=== PATIENT | male | born 1945 | race Hispanic/Latino ===

== ENCOUNTER 2022-05-31 13:10 | Inpatient (IN) | payer OTHER ==
[2022-05-31 14:53] LABS: Absolute Lymphocytes (CBC) 1.7 K/uL (0.7-4.9); Hematocrit 42.1 % (39.6-49.0); Lymphocytes % 19.4 % (15.3-44.8); MCV 88.3 fL (80-100); MPV 8.5 fL (7.6-11.3); RBC Red Blood Cell Count 4.76 M/uL (4.33-5.43)
[2022-05-31 14:54] LABS: Protime INR 1.18
[2022-05-31 14:54] LABS: SARS-CoV-2 Antigen Rapid Res Positive (Negative)
[2022-05-31] MEDS ORDERED: ASPIRIN 81 MG CHEWABLE TABLET ONE (14:56)
--- NOTE | 2022-05-31 15:04 | RAD REPORT ---
EXAM DESCRIPTION: - CP - 05/31/2022 2:43 pm CLINICAL HISTORY: DIZZINESS COMPARISON: No comparisons TECHNIQUE: Real-time sonographic evaluation of both carotid systems was performed. Doppler interroga tion was performed with waveform tracing bilaterally. FINDINGS: Normal high resistance waveforms are noted in both external carotid arteries. The common c arotid arteries and internal carotid arteries show normal low resistance waveforms. No significant plaque formation is seen. Peak systolic and end diastolic velocity values and the ICA/ CCA ratios are in the non-hemodynamically significant range. Antegrade flow seen in both vertebral arteries. IMPRESSION: No significant atherosclerotic changes noted. No evidence of a hemodynamically significant stenosis.
[2022-05-31 15:12] LABS: Albumin 3.4 g/dL (3.4-5.0); Bilirubin Direct 0.2 mg/dL (0-0.2); Bilirubin Total 0.8 mg/dL (0.2-1.0); Magnesium 1.6 mg/dL (1.8-2.4); Potassium 4.8 mmol/L (3.5-5.1); Protein, Total 7.8 g/dL (6.4-8.2); Thyroid Stimulating Hormone 0.171 uIU/mL (0.360-3.740); Troponin High Sensitivity 32.1 pg/mL (<58.9)
--- NOTE | 2022-05-31 15:17 | RAD REPORT ---
EXAM DESCRIPTION: RAD - Chest Single View - 05/31/2022 3:10 pm CLINICAL HISTORY: CHEST PAIN COMPARISON: ABDOMEN 1 VIEW KUB dated 07/19/2015; ABDOMEN 1 VIEW KUB dated 04/14/2013; CHEST SINGLE EW dated 02/11/2013; CHEST PA AND LAT 2 VIEW dated 06/15/2012 FINDINGS: Lines: None. Lungs: No evidence of edema or pneumonia. Pleural: No significant pleural effusions or pneumothorax. Cardiac: The heart size is within normal limits. Mediastinum: Within normal limits. Bones: No acute fractures. Other: None IMPRESSION: No acute cardiopulmonary disease.
[2022-05-31] MEDS ORDERED: MAGNESIUM SULFATE 1 gm IVPB 1 GM/100 ML BAG IV ONE (15:52)
[2022-05-31] MEDS ORDERED: NA CHLORIDE 0.9% 500 ML ONE ×2 (15:52→17:08)
[2022-05-31] MEDS ORDERED: BEBTELOVIMAB 175 MG/2 ML VIAL IV ONE (15:53)
--- NOTE | 2022-05-31 16:25 | EDPHYS ---
Physician Documentation [facility] Name: Tramaine Garrido Age: 76 yrs Sex: Male : 1945 Arrival Date: 05/31/2022 Time: 13:12 Bed 15 Private MD: Sylvain Young C ED Physician Joseph Jesus HPI: 05/31 14:23 This 76 yrs old Male presents to ER via Ambulatory with complaints of snw Dizziness, Shortness Of Breath. 14:23 The patient presents with dizziness. Onset: The symptoms/episode began/occurred snw gradually, 2.5 week(s) ago, and became persistent. Context: occurred at home, occurred while the patient was walking. Modifying factors: The symptoms are alleviated by nothing, the symptoms are aggravated by pt states s/s worse since increasing Nifedipine . Severity of symptoms: At their worst the symptoms were moderate. Patient's baseline: Neuro: alert and fully oriented, Motor: no deficits, Ambulation: walks without assistance. It is unknown whether or not the patient has had similar symptoms in the past. The patient has been recently seen by a physician: the patient's primary care provider, Dr. Young. Historical: - Allergies: 13:23 No Known Allergies; kr3 - PMHx: 13:23 Kidney stone; Hypertensive disorder; kr3 - PSHx: 13:23 None; kr3 - Immunization history:: Client reports receiving the 2nd dose of the Covid vaccine. - Social history:: Smoking status: Patient denies any tobacco usage or history of. ROS: 14:23 Eyes: Negative for injury, pain, redness, and discharge, ENT: Negative for injury, snw pain, and discharge, Neck: Negative for injury, pain, and swelling. 14:23 Abdomen/GI: Negative for abdominal pain, nausea, vomiting, diarrhea, and constipation, Back: Negative for injury and pain, : Negative for injury, bleeding, discharge, and swelling, MS/Extremity: Negative for injury and deformity, Skin: Negative for injury, rash, and discoloration. 14:23 Constitutional: Positive for fatigue, malaise. 14:23 Cardiovascular: Positive for paroxysmal nocturnal dyspnea. 14:23 Respiratory: Positive for dyspnea on exertion. 14:23 Neuro: Positive for dizziness. Exam: 14:16 Constitutional: This is a well developed, well nourished patient who is awake, alert, snw and in no acute distress. Head/Face: Normocephalic, atraumatic. Eyes: Pupils equal round and reactive to light, extra-ocular motions intact. Lids and lashes normal. Conjunctiva and sclera are non-icteric and not injected. Cornea within normal limits. Periorbital areas with no swelling, redness, or edema. ENT: Nares patent. No nasal discharge, no septal abnormalities noted. Tympanic membranes are normal and external auditory canals are clear. Oropharynx with no redness, swelling, or masses, exudates, or evidence of obstruction, uvula midline. Mucous membranes moist. Neck: Trachea midline, no thyromegaly or masses palpated, and no cervical lymphadenopathy. Supple, full range of motion without nuchal rigidity, or vertebral point tenderness. No Meningismus. Chest/axilla: Normal chest wall appearance and motion. Nontender with no deformity. No lesions are appreciated. 14:16 Respiratory: Lungs have equal breath sounds bilaterally, clear to auscultation and percussion. No rales, rhonchi or wheezes noted. No increased work of breathing, no retractions or nasal flaring. Abdomen/GI: Soft, non-tender, with normal bowel sounds. No distension or tympany. No guarding or rebound. No evidence of tenderness throughout. Back: No spinal tenderness. No costovertebral tenderness. Full range of motion. Skin: Warm, dry with normal turgor. Normal color with no rashes, no lesions, and no evidence of cellulitis. MS/ Extremity: Pulses equal, no cyanosis. Neurovascular intact. Full, normal range of motion. 14:16 Cardiovascular: Rate: tachycardic, Rhythm: irregularly irregular, Pulses: no pulse deficits are appreciated, Heart sounds: normal, Edema: pedal edema. 14:16 Neuro: Orientation: is normal, Mentation: is normal, Memory: is normal, pt lives alone. 15:00 Special observations: no evidence of discomfort, the patient smiles. snw Vital Signs: 13:24 BP 136 / 117; Pulse 110; Resp 20; Temp 97.4; Pulse Ox 94% on R/A; Weight 146.06 kg; kr3 Height 5 ft. 8 in. (172.72 cm); Pain 0/10; 14:00 BP 97 / 60; Pulse 127; Resp 22 S; Pulse Ox 93% on R/A; jg9 14:15 BP 90 / 61; Pulse 97 LA; Resp 16 S; Pulse Ox 96% on R/A; jg9 14:30 BP 70 / 48; Pulse 104; Resp 12 S; Pulse Ox 97% ; jg9 15:25 BP 80 / 55; Pulse 109; Resp 16; Pulse Ox 99% on R/A; ss 16:00 BP 99 / 88; Pulse 95; Resp 13 S; Pulse Ox 97% on R/A; jg9 16:22 BP 84 / 68 (man/); jg9 16:30 BP 80 / 55; Pulse 104; Resp 22 S; Pulse Ox 98% on R/A; jg9 16:45 BP 82 / 51; Pulse 91; Resp 14 S; Pulse Ox 98% on R/A; jg9 17:45 BP 112 / 62; Pulse 89; Resp 19; Pulse Ox 97% on R/A; jg9 19:00 BP 96 / 72; Pulse 85; Resp 17; Pulse Ox 97% on R/A; jb4 20:00 BP 110 / 72; Pulse 87; Resp 15; Pulse Ox 96% on R/A; jb4 21:00 BP 123 / 56; Pulse 108; Resp 19; Pulse Ox 97% on R/A; jb4 22:15 BP 129 / 77; Pulse 97; Resp 13; Pulse Ox 97% on R/A; jb4 13:24 Body Mass Index 48.96 (146.06 kg, 172.72 cm) kr3 [place] Coma Score: 16:00 Eye Response: spontaneous(4). Verbal Response: oriented(5). Motor Response: obeys snw commands(6). Total: 15. 16:00 pt in no acute distress. Ox3 snw MDM: 13:50 Patient medically screened. snw 14:16 Data reviewed: vital signs, nurses notes. Data interpreted: Pulse oximetry: on room air snw is 94 %. Interpretation: acceptable. Counseling: I had a detailed discussion with the patient and/or guardian regarding: the historical points, exam findings, and any diagnostic results supporting the discharge/admit diagnosis, the presence of at least one elevated blood pressure reading (>120/80) during this emergency department visit, the need for further work-up and treatment in the hospital, Pt notified that he meets admission criteria based on s/s CHF or a fib related issues. Pt voices understanding. Will await labs to call PCP for admit. Pt will need echo. . ED course: Medications obtained from [facility] Nifedipine 30mg increased to 60mg three weeks ago, Losartan 100mg po daily, Doxazosin 2mg daily, Levothyroxine 50mcg daily, atorvastatin 20mg po q hs, finasteride 5mg daily. 15:15 ED course: Pt test for Covid positive. This is considered source of infection. A = snw viral illness.. 15:30 ED course: Pt has a viral source of sepsis - Sars Covid 19+, +hypotension, tachycardia, snw new onset a. fib.. 15:30 ED course: Pt meets criteria for severe sepsis with shock, A = covid, B= two systolic snw blood pressures below 90. C = new onset a. fib. As pt has s/s CHF, will give 500ml bolus. Pt A\T\O x 3.. ED course: Pt perfusing well, no need for pressors at this time, Dr. Giron consulted, suggests one dose of Digoxin 0.125mg SIVP x 1.. 16:02 Physician consultation: Sylvain Young MD was called at 16:02, was contacted at 16:02, snw regarding admission, would like consultation with Dr. Rao, Wants manual bilateral blood pressures. 18:05 Physician consultation: Grady Giron MD was called at 17:05, was contacted at 18:05, snw regarding consult, would like medications started, digoxin 0.125mg SIVP x 1 dose. 20:06 ED course: septic shock re-evaluation complete. Pt with SBP greater than 90. HR less snw than 100. Mentation normal. No s/s of hypotension . 05/31 14:03 Order name: Basic Metabolic Panel; Complete Time: 15:15 snw 05/31 14:03 Order name: CBC with Diff; Complete Time: 15:15 snw 05/31 14:03 Order name: D-Dimer; Complete Time: 15:15 snw 05/31 14:03 Order name: LFT's; Complete Time: 15:15 snw 05/31 14:03 Order name: Magnesium; Complete Time: 15:15 snw 05/31 14:03 Order name: NT PRO-BNP; Complete Time: 15:15 05/31 14:03 Order name: PT-INR; Complete Time: 15:15 05/31 14:03 Order name: Troponin HS; Complete Time: 15:15 05/31 14:03 Order name: XRAY Chest (1 view); Complete Time: 15:18 05/31 14:03 Order name: SARS RAPID; Complete Time: 15:15 05/31 14:03 Order name: US Carotid Artery Bilateral; Complete Time: 15:15 05/31 14:03 Order name: TSH; Complete Time: 15:15 05/31 14:03 Order name: EKG; Complete Time: 14:04 05/31 14:03 Order name: Cardiac monitoring; Complete Time: 14:09 05/31 14:03 Order name: EKG - Nurse/Tech; Complete Time: 14:15 05/31 14:03 Order name: IV Saline Lock; Complete Time: 14:22 05/31 14:03 Order name: Labs collected and sent; Complete Time: 14:22 05/31 14:03 Order name: O2 Per Protocol; Complete Time: 16:13 05/31 14:03 Order name: O2 Sat Monitoring; Complete Time: 14:09 snw EC:16 Rate is 122 beats/min. Rhythm is irregularly irregular. QRS [place] is Normal. ST Segment snw is depressed in leads V4, V5, V6. Clinical impression: Atrial Fibrillation. Administered Medications: 14:00 Drug: Lovenox (enoxaparin) 1 mg/kg Route: Sub-Q; Site: right lower abdomen; jg9 16:54 Follow up: Response: No adverse reaction jg9 15:03 Drug: Aspirin Chewable Tablet 324 mg Route: PO; jg9 15:58 Follow up: Response: No adverse reaction jg9 15:58 Drug: NS 0.9% 500 ml Route: IV; Rate: bolus; Site: right antecubital; jg9 17:15 Follow up: IV Status: Completed infusion; IV Intake: 500ml ss 16:10 Drug: Magnesium Sulfate 1 grams Route: IVPB; Infused Over: 1 hrs; Site: right jg9 antecubital; 17:15 Follow up: IV Status: Completed infusion; IV Intake: 100ml ss 16:22 Drug: Bebtelovimab 175 mg Route: IV; Rate: calculated rate; Site: right antecubital; jg9 16:54 Follow up: Response: (VIS) Vaccine information sheet provided today. Questions and/or jg9 concerns addressed. VIS edition date: Apr 26, 2021.; No adverse reaction; IV Status: Completed infusion; IV Intake: 2ml 17:20 Drug: NS 0.9% 500 ml Route: IV; Rate: bolus; Site: right antecubital; ss 17:53 Follow up: IV Status: Completed infusion; IV Intake: 500ml jg9 19:17 Drug: Digoxin 0.125 mg Route: IVP; Site: right antecubital; jg9 Disposition Summary: 05/31/22 16:24 Hospitalization Ordered Hospitalization Status: Inpatient Admission snw Provider: Sylvain Young snw Condition: Stable snw Problem: new snw Symptoms: are unchanged snw Bed/Room Type: Standard snw Location: Telemetry/MedSurg (Inpatient)(05/31/22 21:58) mw2 Room Assignment: 418(05/31/22 22:00) mw2 Diagnosis - SARS-associated coronavirus as the cause of diseases classified elsewhere snw - Paroxysmal atrial fibrillation snw - Acute kidney injury snw Forms: - Medication Reconciliation Form snw - SBAR form snw Signatures: Dispatcher [employer] Shaylee Roman RN RN dw Waters, Shelly, FNP-C LEGAL WRITING PROFESSOR-Alexandra Acuna RN RN ss [place], MyKena 2 Opal Jules RN RN jg9 Candi Cid RN RN kr3 Corrections: (The following items were deleted from the chart) 20:00 14:16 Counseling: I had a detailed discussion with the patient and/or guardian snw regarding: the historical points, exam findings, and any diagnostic results supporting the discharge/admit diagnosis, the presence of at least one elevated blood pressure reading (>120/80) during this emergency department visit, the need for further work-up and treatment in the hospital, snw 20:00 14:16 Special discussion: Based on the patient's history, exam, and Dx evaluation, snw there is no indication for emergent intervention or inpatient Tx. It is understood by the patient/guardian that if the Sx's persist or worsen they need to return immediately for re-evaluation. I have referred the patient to see his PCP for further evaluation of high blood pressure. count includes the [facility] 20:06 15:30 Bebtelovimab 175 mg IV at calculated rate once; as a single dose ordered. [facility] 20:06 18:05 Physician consultation: Grady Giron MD was called at 17:05, was contacted at count includes the [facility] 18:05, regarding consult, would like medications started, digoxin 0.125mg SIVP x 1 dose, count includes the [facility] 20:17 16:24 Intensive Care Unit sn dw 20:17 16:24 count includes the [facility] dw :58 20:17 [facility] ER HOLD dw mw2 21:58 20:17 ERHOLD- dw mw2 22:00 21:58 mw2 mw2
--- NOTE | 2022-05-31 16:25 | ER ---
Nurse's Notes [facility] Name: Tramaine Garrido Age: 76 yrs Sex: Male : 1945 Arrival Date: 05/31/2022 Time: 13:12 Bed 15 Private MD: Sylvain Young C Diagnosis: SARS-associated coronavirus as the cause of diseases classified elsewhere;Paroxysmal atrial fibrillation;Acute kidney injury Presentation: 05/31 13:24 Chief complaint: Patient states: SOB and dizziness for [address] Young changed kr3 his meds 2.5 weeks ago. Coronavirus screen: Vaccine status: Patient reports receiving the 2nd dose of the covid vaccine. Client denies travel out of the [place] in the last 14 days. difficulty breathing, fatigue, shortness of breath, Client presents with at least one sign or symptom that may indicate coronavirus-19. Standard/surgical mask placed on the client. Ebola Screen: Patient denies travel to an Ebola-affected area in the 21 days before illness onset. Initial Sepsis Screen: Does the patient meet any 2 criteria? HR > 90 bpm. No. Patient's initial sepsis screen is negative. Does the patient have a suspected source of infection? Yes: Other: dyspnea. Risk Assessment: Do you want to hurt yourself or someone else? Patient reports no desire to harm self or others. Onset of symptoms was May 18, 2022. 13:24 Method Of Arrival: Ambulatory kr3 13:24 Acuity: MARKEL 3 kr3 15:27 Acuity: MARKEL 2 ss Triage Assessment: 13:26 General: Appears uncomfortable, ill, Behavior is cooperative, appropriate for age. kr3 Pain: Denies pain. Neuro: Reports dizziness, weakness. Respiratory: Reports shortness of breath on exertion Onset: The symptoms/episode began/occurred 2 weeks, the patient has moderate shortness of breath. Historical: - Allergies: 13:23 No Known Allergies; kr3 - PMHx: 13:23 Kidney stone; Hypertensive disorder; kr3 - PSHx: 13:23 None; kr3 - Immunization history:: Client reports receiving the 2nd dose of the Covid vaccine. - Social history:: Smoking status: Patient denies any tobacco usage or history of. Screenin:41 Abuse screen: Denies threats or abuse. Denies injuries from another. Nutritional jg9 screening: No deficits noted. Tuberculosis screening: No symptoms or risk factors identified. Fall Risk None identified. Assessment: 14:00 Reassessment: Patient appears in no apparent distress at this time. No changes from jg9 previously documented assessment. Patient and/or family updated on plan of care and expected duration. Pain level reassessed. Patient is alert, oriented x 3, equal unlabored respirations, skin warm/dry/pink. 15:00 Reassessment: Patient and/or family updated on plan of care and expected duration. Pain jg9 level reassessed. Patient is alert, oriented x 3, equal unlabored respirations, skin warm/dry/pink. Cardiovascular: Rhythm is atrial fibrillation. Respiratory: Airway is patent Respiratory effort is even, unlabored, Breath sounds are clear bilaterally. 16:22 Reassessment: Manual BP done-Gomez notified. jg9 19:00 Reassessment: Patient appears in no apparent distress at this time. Patient and/or jb4 family updated on plan of care and expected duration. Pain level reassessed. Patient is alert, oriented x 3, equal unlabored respirations, skin warm/dry/pink. 20:00 Reassessment: Patient appears in no apparent distress at this time. Patient and/or jb4 family updated on plan of care and expected duration. Pain level reassessed. Patient is alert, oriented x 3, equal unlabored respirations, skin warm/dry/pink. 21:00 Reassessment: Patient appears in no apparent distress at this time. Patient and/or jb4 family updated on plan of care and expected duration. Pain level reassessed. Patient is alert, oriented x 3, equal unlabored respirations, skin warm/dry/pink. 22:00 Reassessment: Patient appears in no apparent distress at this time. Patient and/or jb4 family updated on plan of care and expected duration. Pain level reassessed. Patient is alert, oriented x 3, equal unlabored respirations, skin warm/dry/pink. Patient states feeling better. Vital Signs: 13:24 BP 136 / 117; Pulse 110; Resp 20; Temp 97.4; Pulse Ox 94% on R/A; Weight 146.06 kg; kr3 Height 5 ft. 8 in. (172.72 cm); Pain 0/10; 14:00 BP 97 / 60; Pulse 127; Resp 22 S; Pulse Ox 93% on R/A; jg9 14:15 BP 90 / 61; Pulse 97 LA; Resp 16 S; Pulse Ox 96% on R/A; jg9 14:30 BP 70 / 48; Pulse 104; Resp 12 S; Pulse Ox 97% ; jg9 15:25 BP 80 / 55; Pulse 109; Resp 16; Pulse Ox 99% on R/A; ss 16:00 BP 99 / 88; Pulse 95; Resp 13 S; Pulse Ox 97% on R/A; jg9 16:22 BP 84 / 68 (man/); jg9 16:30 BP 80 / 55; Pulse 104; Resp 22 S; Pulse Ox 98% on R/A; jg9 16:45 BP 82 / 51; Pulse 91; Resp 14 S; Pulse Ox 98% on R/A; jg9 17:45 BP 112 / 62; Pulse 89; Resp 19; Pulse Ox 97% on R/A; jg9 19:00 BP 96 / 72; Pulse 85; Resp 17; Pulse Ox 97% on R/A; jb4 20:00 BP 110 / 72; Pulse 87; Resp 15; Pulse Ox 96% on R/A; jb4 21:00 BP 123 / 56; Pulse 108; Resp 19; Pulse Ox 97% on R/A; jb4 22:15 BP 129 / 77; Pulse 97; Resp 13; Pulse Ox 97% on R/A; jb4 13:24 Body Mass Index 48.96 (146.06 kg, 172.72 cm) kr3 [place] Coma Score: 16:00 Eye Response: spontaneous(4). Verbal Response: oriented(5). Motor Response: obeys snw commands(6). Total: 15. 16:00 pt in no acute distress. Ox3 snw ED Course: 13:12 Patient arrived in ED. rg4 13:12 Sylvain Young MD is Private Physician. rg4 13:26 Triage completed. kr3 13:26 Arm band placed on Patient placed in an exam room, on a stretcher. kr3 13:49 Rita [facility]-C [facility] snw 13:49 Joseph Jesus MD is Attending Physician. snw 14:00 Patient has correct armband on for positive identification. Bed in low position. Call jg9 light in reach. Side rails up X 1. 14:04 Opal Jules, RN is Primary Nurse. jg9 14:10 Inserted saline lock: 22 gauge in right antecubital area, using aseptic technique. jg9 Blood collected. 14:22 EKG done, by ED staff, reviewed by Rita LEON. 3 14:44 US Carotid Artery Bilateral In Process Unspecified. EDMS 15:11 XRAY Chest (1 view) In Process Unspecified. EDMS 16:23 Sylvain Young MD is Hospitalizing Provider. snw 19:08 Primary Nurse role handed off by Opal Jules, ROMAIN mw2 22:34 Radha Vasquez, ROMAIN is Primary Nurse. hb 22:50 No provider procedures requiring assistance completed. Patient admitted, IV remains in jb4 place. Administered Medications: 14:00 Drug: Lovenox (enoxaparin) 1 mg/kg Route: Sub-Q; Site: right lower abdomen; jg9 16:54 Follow up: Response: No adverse reaction jg9 15:03 Drug: Aspirin Chewable Tablet 324 mg Route: PO; jg9 15:58 Follow up: Response: No adverse reaction jg9 15:58 Drug: NS 0.9% 500 ml Route: IV; Rate: bolus; Site: right antecubital; jg9 17:15 Follow up: IV Status: Completed infusion; IV Intake: 500ml ss 16:10 Drug: Magnesium Sulfate 1 grams Route: IVPB; Infused Over: 1 hrs; Site: right jg9 antecubital; 17:15 Follow up: IV Status: Completed infusion; IV Intake: 100ml ss 16:22 Drug: Bebtelovimab 175 mg Route: IV; Rate: calculated rate; Site: right antecubital; jg9 16:54 Follow up: Response: (VIS) Vaccine information sheet provided today. Questions and/or jg9 concerns addressed. VIS edition date: Apr 26, 2021.; No adverse reaction; IV Status: Completed infusion; IV Intake: 2ml 17:20 Drug: NS 0.9% 500 ml Route: IV; Rate: bolus; Site: right antecubital; ss 17:53 Follow up: IV Status: Completed infusion; IV Intake: 500ml jg9 19:17 Drug: Digoxin 0.125 mg Route: IVP; Site: right antecubital; jg9 Medication: 22:50 VIS not applicable for this client. jb4 Intake: 16:54 IV: 2ml; Total: 2ml. jg9 17:15 IV: 500ml; Total: 502ml. ss 17:15 IV: 100ml; Total: 602ml. ss 17:53 IV: 500ml; Total: 1102ml. jg9 Outcome: 16:24 Decision to Hospitalize by Provider. snw 22:50 Admitted to Tele accompanied by [facility], room 418, with chart. jb4 22:50 Condition: stable 22:50 Discharge instructions given to patient, Instructed on the need for admit, Demonstrated understanding of instructions. 22:50 Patient left the ED. jb4 Signatures: Dispatcher [employer] EDMS Rita Gomez, TOOL DRESSER-C TOOL DRESSER-Csnw Alexandra Moy RN RN Radha Berry, RN Geetha Phillips 4 Bart Amor RN RN jb4 Jolly Guadalupe 3 Ike Mike 2 Opal Jules RN RN jg9 Candi Cid, RN RN kr3 Corrections: (The following items were deleted from the chart) 15:36 14:15 BP 90 / 61; Pulse 97bpm; Left Arm; jg9
[2022-05-31] MEDS ORDERED: DIGOXIN 0.25 MG/ML AMP ONE (18:40)
[2022-05-31] MEDS ORDERED: FAMOTIDINE 20 MG/2 ML VIAL IV SCH (22:40)
[2022-05-31] MEDS ORDERED: ACETAMINOPHEN 500 MG TAB PO PRN (22:40)
[2022-05-31] MEDS: NA CHLORIDE 0.9% 1,000 ML IV SCH (23:12)
[2022-05-31 23:49] LABS: CKMB Creatine Kinase MB 1.6 ng/mL (1.0-3.6)
[2022-06-01 06:56] LABS: Absolute Lymphocytes (CBC) 1.5 K/uL (0.7-4.9); Hematocrit 38.4 % (39.6-49.0); Lymphocytes % 24.2 % (15.3-44.8); MCV 88.7 fL (80-100); MPV 8.1 fL (7.6-11.3); RBC Red Blood Cell Count 4.33 M/uL (4.33-5.43)
[2022-06-01 07:29] LABS: Magnesium 1.9 mg/dL (1.8-2.4); Potassium 4.7 mmol/L (3.5-5.1)
[2022-06-01 07:31] LABS: CKMB Creatine Kinase MB 1.7 ng/mL (1.0-3.6)
[2022-06-01] MEDS: FINASTERIDE 5 MG TAB PO SCH (08:27)
[2022-06-01] MEDS: METOPROLOL TAR 25 MG TAB PO SCH ×2 (08:27→21:13)
[2022-06-01] MEDS: NA CHLORIDE 0.9% 1,000 ML IV SCH (13:06)
--- NOTE | 2022-06-01 17:28 | CON ---
Date of Consultation: 06/01/2022 Reason For Consultation: Atrial fibrillation with rapid ventricle response. History Of Present Illness: This is a 76-year-old male with past medical history of hypertension, dy slipidemia, hypothyroidism, on LT4, presented to the emergency room feeling dizzy and short of breath . The patient was tested positive for COVID and initially was in atrial fibrillation with rapid vent ricular response. Given 1 dose of digoxin. Heart rate went down and continues to be in AFib, but wi th rate being controlled. The patient's blood pressure was borderline low and has improved nicely an d currently his AFib is rate controlled and the patient is feeling well. Denies having any chest shanika n or shortness of breath. Past Medical History: As outlined above in the HPI. Medications: Refer to reconciliation sheet for detailed list. Allergies: NO KNOWN DRUG ALLERGIES. Family History: No premature coronary artery disease or cancer. Social History: He does not smoke or drink. Does not use any drugs. Review of Systems: All systems reviewed and they were negative except for what mentioned in the HPI. Physical Examination: Vital Signs: Temperature is 97.0, pulse 80, breathing at 18, blood pressure is 107/70, saturating 97 % on room air. General: Pleasant middle-aged male, in no apparent distress. Head and Neck: Pupils are equal, reactive to light. Intact eye movements. No JVD. No cervical lym phadenopathy. Neck is supple. Thyroid is not enlarged. Lungs: Clear to auscultation bilaterally. No rhonchi, wheezing, or crackles. No accessory muscle u se. Heart: Irregularly irregular. No extra sounds. Abdomen: Soft, nontender. Bowel sounds positive. No organomegaly. No masses or hernia. No rigidi ty or rebound. Extremities: No clubbing or cyanosis. Intact pulses. Skin: No rash. Neurologic: Alert, awake. No acute focal deficits appreciated. Lymph Nodes: No cervical or axillary lymphadenopathy. Investigations: BUN is 23. Creatinine is 2.03, down from 2.7. Troponins are negative. Assessment And Recommendations: 1.Atrial fibrillation with rapid ventricular response. Probably the atrial fibrillation episode is due to the hyperactive thyroid condition. Recommend to cut down on the thyroid replacement therapy a nd agree with metoprolol. Rate now is controlled and the patient is hemodynamically stable. He will need anticoagulation as well. Eliquis is a good agent; however, a careful dose adjustment is to be considered due to the kidney dysfunction. Now, the kidney dysfunction can be an acute and the patien t's creatinine clearance is improving. We will reassess tomorrow. Please obtain echocardiogram. 2.Acute renal failure probably due to severe dehydration, improving with IV fluids. 3.Positive COVID. No significant inspiratory symptoms present. SR/MODL Voice ID: [id number] Report ID: [id number]
[2022-06-01] MEDS ORDERED: ATORVASTATIN 20 MG TAB PO SCH (21:00)
[2022-06-01] MEDS ORDERED: FAMOTIDINE 20 MG TAB PO SCH (21:00)
[2022-06-01] MEDS: APIXABAN 5 MG TABLET PO SCH (21:14)
[2022-06-02 00:01] VITALS: BMI 48.9
[2022-06-02] MEDS: NA CHLORIDE 0.9% 1,000 ML IV SCH ×2 (01:05→03:16)
[2022-06-02 04:23] LABS: Hematocrit 38.2 % (39.6-49.0); Lymphocytes % 26.4 % (15.3-44.8); MCV 88.5 fL (80-100); MPV 8.3 fL (7.6-11.3); RBC Red Blood Cell Count 4.31 M/uL (4.33-5.43)
[2022-06-02 04:50] LABS: Magnesium 1.8 mg/dL (1.8-2.4); Potassium 4.4 mmol/L (3.5-5.1)
[2022-06-02] MEDS ORDERED: LEVOTHYROXINE SOD 0.1 MG TAB PO SCH (06:30)
[2022-06-02] MEDS ORDERED: MAGNESIUM SULFATE 1 gm IVPB 1 GM/100 ML BAG IV ONE (07:00)
[2022-06-02] MEDS: METOPROLOL TAR 25 MG TAB PO SCH (08:28)
[2022-06-02] MEDS: APIXABAN 5 MG TABLET PO SCH (08:28)
[2022-06-02] MEDS: FINASTERIDE 5 MG TAB PO SCH (08:28)
[2022-06-02 08:35] VITALS: O2SAT 95
--- NOTE | 2022-06-02 11:46 | HP ---
Date of Admission: 05/31/2022 Chief Complaint: Dizziness and shortness of breath. History Of Present Illness: This is a 76-year-old male patient, who came into emergency room with ac [place] onset of feeling dizzy and short of breath when he got up to go take a shower. He also felt like heart racing feeling at that time. He came into emergency room. After he was evaluated in the ER, he was admitted to the hospital. The patient had atrial fibrillation with rapid ventricular rate. Vilma barrera was also tested positive for COVID in emergency room. His initial blood pressure was low in emerge ncy room and he did receive IV fluid 500 cc bolus 2 times in the emergency room and that actually has helped to improve his low blood pressure problem. For his COVID, he did receive monoclonal antibody treatment in the emergency room. Our original plan was to admit him to ICU, but once his blood pres sure improved and stabilized, we decided to admit him to regular medical floor. When I saw him this morning, he was lying in bed, feeling much better, denies any other complaints. He denies any cough, congestion. No expectoration. Allergies: NO KNOWN ALLERGIES. Medications: Aspirin 81 mg daily, atorvastatin 20 mg daily in the evening, doxazosin 2 mg at bedtime , finasteride 5 mg daily, levothyroxine 200 mcg daily and 50 mcg daily, losartan 100 mg daily, nifedi pine 30 mg 2 times a day. 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 Cardiovascular: As mentioned above. Respiratory: As mentioned above. All other systems reviewed and negative. Past Medical History: Significant for hypothyroidism, type 2 diabetes mellitus, hypertension, mixed hyperlipidemia, benign prostatic hypertrophy, high PSA, and chronic kidney disease stage 3B. Past Surgical History: Negative. Family History: Father, coronary artery disease. Mother , details unknown. Social History: Negative for smoking or alcohol use. Physical Examination: Vital Signs: Temperature 97.4, pulse 89, respiratory rate 13, blood pressure 117/72, oxygen saturati on 97%. Height 5 feet 8 inches, weight 322 pounds. General: Awake, alert, oriented, not in distress. HEENT: Head atraumatic, normocephalic. Conjunctivae nonerythematous. Sclerae white. Mouth, no thr ush or edema noted. Ears/Nose, no mass, lesion, discharge noted. Neck: Supple. No JVD, lymph nodes, bruit, thyromegaly noted. Lungs: Bilateral good equal air entry. Clear to auscultation. No rhonchi. No rales. Heart: Normal heart sounds, no murmur or gallop. Abdomen: Soft, bowel sounds normal. No guarding, rigidity, tenderness, mass, hepatosplenomegaly, dis tention, or bruit noted. Extremities: No leg edema. No calf tenderness. Skin: No rash, ulcer, cellulitis. Lymphatics: No lymph node enlargement in neck, supraclavicular, infraclavicular region. Neuro: No focal neurological deficit. Chest: Unremarkable. External Genitalia: Deferred. Rectal: Deferred. Laboratory Data: Yesterday; white count 8.6, hemoglobin 14.6, platelets 237. This morning; white co unt 6.3, hemoglobin 13.5, platelets 177. Yesterday; sodium 142, potassium 4.8, chloride 111, bicarb 23, BUN 21, creatinine 2.79, glucose 133. Liver function tests unremarkable. Magnesium low at 1.6. Troponin 32.1. ProBNP 2337. TSH 0.171. This morning; magnesium 1.9, sodium 143, potassium 4.7, ch loride 114, bicarb 25, BUN 23, creatinine 2.03. Troponin pending. Chest x-ray, no acute cardiopulmo nary changes. Carotid Doppler was unremarkable. Impression: 1.Atrial fibrillation with rapid ventricular rate, new onset. 2.Hypothyroidism. 3.Acute kidney injury. 4.COVID-19 infection. 5.Type 2 diabetes mellitus. 6.Hypertension. 7.Mixed hyperlipidemia. 8.Chronic kidney disease, stage 4. 9.Benign prostatic hypertrophy. 10.Elevated PSA. Plan: We will go ahead and admit the patient to hospital for further evaluation and management of th is problem. The patient is appropriate for inpatient and is expected to spend 2 midnights in the [facility]. For COVID-19 infection, he is very stable at this point, no evidence of any lung involvement and he did receive monoclonal antibody in the emergency room, no need for any further intervention at this time. For atrial fibrillation, he did receive Lovenox in the emergency room yesterday and star ting this evening we will start him on Eliquis 5 mg 2 times a day. We will also start him on metopro lol for rate control and blood pressure control, consult Cardiology, get echo with Doppler tomorrow. He is on levothyroxine 200 mcg and 50 mcg daily. We will reduce the dose to 200 mcg daily now and f ollow up on outpatient basis for the thyroid. Diabetes will be managed with a sliding scale insulin. Renal function already has improved with IV fluid hydration, which was given yesterday. Continue o ther current home medications per order. Details and plan of treatment discussed with the patient an d he was made aware of importance and risk and benefit of anticoagulation therapy for atrial fibrilla tion and was recommended to take anticoagulation therapy for prevention of any thromboembolic phenome na and he understands and agrees. He was also advised to take appropriate precautions to avoid any i njury and if there is any excessive amount or uncontrolled bleeding noted or any head injury, he need s to come to emergency room right away. All these details were discussed with him today. FRANNY/GUICHO Voice ID: [id number]
[2022-06-02 12:19] VITALS: BP 128/80; TEMP 97
--- NOTE | 2022-06-02 15:09 | EKG ---
Test Date: 2022-05-31 Test Time: 14:16:59 Registered Appraiser: CINDY MEASUREMENT RESULTS: Intervals: Rate: 122 MI: QRSD: 70 QT: 316 QTc: 450 [place]: P: MI: QRS: 19 T: 51 INTERPRETIVE STATEMENTS: Atrial fibrillation with rapid ventricular response with premature ventricular or aberrantly conducted complexes Abnormal ECG Compared to ECG 06/07/2014 12:27:20 Ventricular premature complex(es) now present Sinus rhythm no longer present Electronically Signed On 06-02-22 15:08:31 CDT by Grady Giron
--- NOTE | 2022-06-02 20:25 | PN ---
Date of Progress Note: 06/02/2022 Reason For Consultation: Atrial fibrillation. Subjective: Patient was seen by bedside, doing very well, stable clinically. He does not have any c hest pain or shortness of breath. He denied palpitations. He is in atrial fibrillation, but rate is controlled. Review of Systems: No chest pain, shortness of breath, orthopnea, cough. No nausea, vomiting, or diarrhea. No abdomina l pain. No dysuria, polyuria, or urinary urgency. All other systems reviewed are negative. Physical Examination: Vital Signs: Temperature is 97.0, pulse 73, breathing at 16, blood pressure 128/80, saturating at 96 % on room air. General: Pleasant, elderly male, in no apparent distress. Head And Neck: Pupils are equal, reactive to light. Intact eye movements. No JVD. No cervical lym phadenopathy. Neck is supple. Thyroid is not enlarged. Lungs: Clear to auscultation bilaterally. No rhonchi, rales, or crackles. No accessory muscle use. Heart: Irregularly irregular. No extra sounds. Abdomen: Soft, nontender. Bowel sounds positive. No organomegaly. No masses or hernia. No rigidi ty or rebound. Extremities: No edema, clubbing cyanosis. Intact pulses. Skin: No rash. Neurologic: Alert, awake, oriented x3. No acute process. Investigations: Creatinine is 1.7 down from 2.7. Assessment And Recommendations: 1.Atrial fibrillation with a rapid ventricular response, now rate is controlled. I agree with metop rolol and Eliquis. On echocardiogram, he has a normal ejection fraction and mild enlargement of the left atrium. From a cardiology standpoint, the patient can be released and follow up as an outpatien t for atrial fibrillation management. 2.He has acute renal failure, responding very well to fluids. 3.Positive COVID-19. The patient is clinically hemodynamically stable. SR/MODL Voice ID: [id number] Report ID: [id number]
--- NOTE | 2022-06-03 06:58 | DS ---
Date of Discharge: 06/02/2022 Disposition: Discharged to go home. Physical Examination: HEENT: Unremarkable. Lungs: Clear to auscultation. Heart: Sounds normal. Abdomen: Soft. Bowel sounds normal. No guarding, rigidity, tenderness, or distention. Extremities: No leg edema. Laboratory Data: Today; white count 7.5, hemoglobin 13.3, platelets 188. Upon admission; white coun t 8.6, hemoglobin 14.6, and platelet count 237. Chemistry today; sodium 144, potassium 4.4, chloride 114, bicarb 24, BUN 18, creatinine 1.70, glucose 117, magnesium 1.8. On admission, BUN 21, creatini ne 2.79. ProBNP 2337. Troponin followup at 32.1 seconds at 49.82. TSH upon admission 0.171. Discharge Medications And Instructions: 1.Stop levothyroxine 50 mcg dose. 2.Stop nifedipine. 3.Stop aspirin. Continue following previous home medications: 1.Atorvastatin 20 mg daily. 2.Doxazosin 2 mg daily at bedtime. 3.Finasteride 5 mg daily. 4.Levothyroxine 200 mcg. 5.Losartan 100 mg daily. Start following new medications: 1.Eliquis 5 mg 2 times a day. 2.Metoprolol tartrate 25 mg 2 times a day. 3.Return to work on 06/09/2022 and wear mask while out of house. 4.Follow up with my office during week off 06/16/2022. 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 Giron in 2 weeks. Hospital Course: A 76-year-old pleasant male patient, admitted to the hospital with complaints of sh ortness of breath, dizziness, and heart palpitation type of feeling. Please see dictated H and P for more information. Patient was evaluated in the emergency room after he came with this complaint, wa s evaluated and admitted to hospital. The patient had acute kidney injury. COVID-19 test was positi ve. There was no evidence of COVID pneumonia. He was given monoclonal antibody treatment in the [facility] room and he did require IV fluid bolus 500 cc x2 doses for his low blood pressure problem. He had atrial fibrillation with rapid ventricular rate and he was given 1 dose of Lovenox in emergency room and as of yesterday evening, we started him on Eliquis 5 mg 2 times a day. Cardiology consultat ion was requested. Echo was done today, result pending. Breeding Manager has released him to go home fr om cardiac point of view. Medically, he is stable for discharge. Hemodynamically, he is stable and his palpitation, shortness of breath, and dizziness, all those problems have resolved. Final Diagnoses: 1.COVID-19 infection. 2.Acute kidney injury. 3.Volume depletion. 4.Atrial fibrillation, new onset. 5.Hypertension. 6.Hyperlipidemia. 7.Hypothyroidism. FRANNY/MODL Voice ID: [id number] Report ID: [id number]
--- NOTE | 2022-06-03 07:23 | ECHO ---
HEIGHT: 5 ft 8 in WEIGHT: 322 lb 0 oz DATE OF STUDY: 06/02/[address]: Anthony Young MD 2-DIMENSIONAL: YES M.MODE: YES DOPPLER: YES COLOR FLOW: YES TDS: YES PORTABLE: YES DEFINITY: NO BUBBLE STUDY: NO DIAGNOSIS: ATRIAL FIBRILLATION CARDIAC HISTORY: CATHERIZATION: NO SURGERY: NO PROSTHETIC VALVE: NO PACEMAKER: NO MEASUREMENTS (cm) DIASTOLIC (NORMALS) SYSTOLIC (NORMALS) IVSd 1.4 (0.6-1.2) LA Diam 4.0 (1.9-4.0) LVEF 56% LVIDd 4.4 (3.5-5.7) LVIDs 3.2 (2.0-3.5) %FS 29% LVPWd 1.5 (0.6-1.2) Ao Diam 2.8 (2.0-3.7) 2 DIMENSIONAL ASSESSMENT: RIGHT ATRIUM: NORMAL LEFT ATRIUM: ENLARGED RIGHT VENTRICLE: NORMAL LEFT VENTRICLE: NORMAL TRICUSPID VALVE: MITRAL VALVE: PULMONIC VALVE: NORMAL AORTIC VALVE: NORMAL PERICARDIAL EFFUSION: SMALL AORTIC ROOT: NORMAL LEFT VENTRICULAR WALL MOTION: NORMAL DOPPLER/COLOR FLOW: SEE BELOW COMMENTS: NORMAL LEFT VENTRICULAR EJECTION FRACTION 55-60%. NORMAL WALL MOTION. MILD MITRAL AND TRICUSPID REGURGITATION. SMALL PERICARDIAL EFFUSION. LIMITED WINDOWS. TECHNOLOGIST: Kenisha OVIEDO
== END 2022-06-02 15:59 | disposition home or self-care (01) | DRG 308 ==
LOC: ER 13:10 → ERHOLD 16:27 → 4TH 22:37
PROVIDERS: ADMIT Internal Medicine; ATTEND Internal Medicine
PROC: XW033H6 Introduction of Other New Technology Monoclonal Antibody into Peripheral Vein, Percutaneous Approach, New Technology Group 6 (ICD-10-PCS; principal; 2022-05-31)
DX: I48.0 Paroxysmal atrial fibrillation (principal); U07.1 COVID-19; N17.9 Acute kidney failure, unspecified; I10 Essential (primary) hypertension; E78.5 Hyperlipidemia, unspecified
CPT/HCPCS: 36415; 71045; 80048; 80061; 80076; 82550; 82553; 82947; 83735; 83880; 84443; 84484; 85025; 85379; 85610; 87811; 93005; 93306; 93880; 96361; 96365; 96372; 96375; 99285; J1160; J1650; J3475; J7030; J7040

== ENCOUNTER 2023-02-24 19:31 | Inpatient (IN) | payer OTHER ==
[2023-02-24 21:53] LABS: Absolute Lymphocytes (CBC) 2.1 K/uL (0.7-4.9); Hematocrit 39.8 % (39.6-49.0); Lymphocytes % 27.8 % (15.3-44.8); MCV 88.2 fL (80-100); MPV 9.1 fL (7.6-11.3); RBC Red Blood Cell Count 4.52 M/uL (4.33-5.43)
[2023-02-24] MEDS ORDERED: ONDANSETRON 4 MG/2 ML VIAL ONE (21:58)
[2023-02-24] MEDS ORDERED: MORPHINE 4 MG/ML SYR ONE (21:58)
[2023-02-24 22:09] LABS: Albumin 3.2 g/dL (3.4-5.0); Potassium 3.6 mEq/L (3.5-5.1); Protein, Total 7.3 g/dL (6.4-8.2)
[2023-02-24] MEDS ORDERED: NA CHLORIDE 0.9% 500 ML ONE (23:36)
--- NOTE | 2023-02-25 01:36 | ER ---
Nurse's Notes [facility] Name: Tramaine Garrido Age: 77 yrs Sex: Male : 1945 Arrival Date: 02/24/2023 Time: 19:31 Bed 16 Private MD: Diagnosis: Abdominal pain, unspecified Presentation: 02/24 19:40 Chief complaint: Patient states: Abdominal pain since Thursday, seen by PCP earlier [facility] today, instructed to come to ED. Today pain is more periumbilical. Coronavirus screen: Vaccine status: Patient reports receiving the 2nd dose of the covid vaccine. Ebola Screen: Patient denies travel to an Ebola-affected area in the 21 days before illness onset. Risk Assessment: Do you want to hurt yourself or someone else? Patient reports no desire to harm self or others. Onset of symptoms was February 22, 2023. 19:40 Method Of Arrival: Ambulatory [facility] 19:40 Acuity: MARKEL 3 [facility] 19:40 Initial Sepsis Screen: Does the patient meet any 2 criteria? No. Patient's initial [facility] sepsis screen is negative. Does the patient have a suspected source of infection? No. Patient's initial sepsis screen is negative. Historical: - Allergies: 19:43 No Known Allergies; [facility] - Home Meds: 19:43 Blood thinner, unsure of what it is or what is for [Active]; [facility] - PMHx: 19:43 Kidney stone; Hypertensive disorder; BPH; [facility] - PSHx: 19:43 None; [facility] - Immunization history:: Client reports receiving the 2nd dose of the Covid vaccine. - Social history:: Smoking status: Patient denies any tobacco usage or history of. Screenin:39 [facility] ED Fall Risk Assessment (Adult) History of falling in the last 3 months, mb9 including since admission No falls in past 3 months (0 pts) Confusion or Disorientation No (0 pts) Intoxicated or Sedated No (0 pts) Impaired Gait No (0 pts) Mobility Assist Device Used No (0 pt) Altered Elimination No (0 pt) Score/Fall Risk Level 0 - 2 = Low Risk Oriented to surroundings, Maintained a safe environment, Educated pt \T\ family on fall prevention, incl call for assistance when getting out of bed. Abuse screen: Denies threats or abuse. Nutritional screening: No deficits noted. Tuberculosis screening: No symptoms or risk factors identified. Assessment: 21:00 General: Appears in no apparent distress. Behavior is calm, cooperative, appropriate mb9 for age. Pain: Complains of pain in abdomen Pain does not radiate. 21:00 Neuro: John Agitation-Sedation Scale (RASS): 0 - Alert and Calm Level of mb9 Consciousness is awake, alert, obeys commands, Oriented to person, place, time, situation, Appropriate for age. Cardiovascular: Patient's skin is warm and dry. Respiratory: Airway is patent Respiratory effort is even, unlabored, Respiratory pattern is regular, symmetrical. GI: Abdomen is round non-distended, Bowel sounds present X 4 quads. Abd is soft and non tender X 4 quads. Reports. Derm: Skin is pink, warm \T\ dry. Musculoskeletal: Range of motion: intact in all extremities. Vital Signs: 19:40 BP 139 / 84; Pulse 73; Resp 18; Temp 97.3(TE); Pulse Ox 98% on R/A; Weight 132 kg; nj1 Height 5 ft. 7 in. ; Pain 4/10; 23:05 BP 132 / 74; Pulse 74; Resp 20; Pulse Ox 99% on R/A; mb9 19:40 Body Mass Index 45.58 (132.00 kg, 170.18 cm) nj1 19:40 Pain Scale: Adult nj1 ED Course: 19:36 Patient arrived in ED. jj6 19:43 Triage completed. nj1 19:45 Arm band placed on right wrist. nj1 20:28 Joseph Fong PA is PHCP. cp 20:28 Spike Jacobs MD is Attending Physician. cp 21:38 Lynn Fajardo, ROMAIN is Primary Nurse. mb9 22:59 CT Abd/Pelvis - IV Contrast Only In Process Unspecified. EDMS 23:04 Bed in low position. Call light in reach. Side rails up X 1. Client placed on mb9 continuous cardiac and pulse oximetry monitoring. NIBP monitoring applied. 23:04 No provider procedures requiring assistance completed. mb9 06 01:34 Sylvain Young MD is Hospitalizing Provider. cp 01:36 US Abdomen Limited: gallbladder In Process Unspecified. EDMS 03:00 Patient admitted, IV remains in place. aa9 03:26 Blood Culture Adult (2) Sent. aa9 03:26 Lactate w/ 2H reflex if indic. Sent. aa9 Administered Medications: 02/24 21:58 Not Given (Patient Refused): morphine IVP or IV 4 mg IVP once over 4 mins mb9 21:58 Not Given (Patient Refused): Ondansetron IVP 4 mg IVP once; over 2 minutes mb9 23:32 Drug: NS 0.9% IV 500 ml Route: IV; Rate: 125 ml/hr; Site: right antecubital; mb9 02/25 03:52 Drug: Piperacillin-Tazobactam IVPB 4.5 grams Route: IVPB; Infused Over: 60 mins; Site: aa9 right antecubital; Medication: 02/24 21:39 VIS not applicable for this client. mb9 Outcome: 02/25 01:35 Decision to Hospitalize by Provider. cp 03:00 Condition: stable aa9 03:00 Admitted to ER Hold. Please see [facility] for further documentation. aa9 03:00 Instructed on the need for admit. 17:15 Patient left the ED. sg5 Signatures: Dispatcher [employer] EDMS Joseph Fong PA PA Opal Johnston jj6 Desirae Lux, RN RN aa9 Lynn Fajardo RN RN mb9 Cari Calhoun RN RN sg5 Missy Crooks, ROMAIN RN nj1 Corrections: (The following items were deleted from the chart) 02/24 19:46 19:40 Resp 18bpm; 132 kg; Height 5 ft. 7 in.; BMI: 45.5; Pain 4/10, Adult; nj1 nj1
--- NOTE | 2023-02-25 01:36 | EDPHYS ---
Physician Documentation [facility] Name: Tramaine Garrido Age: 77 yrs Sex: Male : 1945 Arrival Date: 02/24/2023 Time: 19:31 Bed 16 Private MD: ED Physician Spike Jacobs HPI: 02/24 21:00 This 77 yrs old Male presents to ER via Ambulatory with complaints of cp Abdominal Pain, Abdominal Problem, Dr Young recommended patient report to ER. 21:00 The patient presents with abdominal pain in the periumbilical area. mid lower abdomen. cp 21:00 Onset: The symptoms/episode began/occurred 2 day(s) ago. cp 21:00 The symptoms do not radiate. Associated signs and symptoms: Pertinent negatives: blood cp in stools, constipation, diarrhea, dysuria, fever, shortness of breath, testicular pain. The symptoms are described as constant. Modifying factors: the symptoms are aggravated by pressure. The patient has been recently seen by a physician: the patient's primary care provider, with similar presenting complaints, and was sent to the [facility] Emergency Department for further evaluation. Historical: - Allergies: 19:43 No Known Allergies; nj1 - Home Meds: 19:43 Blood thinner, unsure of what it is or what is for [Active]; nj1 - PMHx: 19:43 Kidney stone; Hypertensive disorder; BPH; nj1 - PSHx: 19:43 None; nj1 - Immunization history:: Client reports receiving the 2nd dose of the Covid vaccine. - Social history:: Smoking status: Patient denies any tobacco usage or history of. ROS: 21:05 Constitutional: Negative for body aches, chills, fever, poor PO intake. cp 21:05 Eyes: Negative for injury, pain, redness, and discharge. cp 21:05 ENT: Negative for drainage from ear(s), ear pain, sore throat, difficulty swallowing, difficulty handling secretions. 21:05 Cardiovascular: Negative for chest pain, palpitations. 21:05 Respiratory: Negative for cough, shortness of breath, wheezing. 21:05 Abdomen/GI: Positive for abdominal pain, vomiting, diarrhea, constipation. 21:05 : Negative for urinary symptoms, testicular pain 21:05 Neuro: Negative for altered mental status, dizziness, headache, weakness. 21:05 All other systems are negative. Exam: 21:10 Constitutional: The patient appears in no acute distress, alert, awake, non-toxic, well cp developed, well nourished, obese. 21:10 Head/Face: Normocephalic, atraumatic. cp 21:10 Eyes: Periorbital structures: appear normal, Conjunctiva: normal, no exudate, no injection, Sclera: no appreciated abnormality, Lids and lashes: appear normal, bilaterally. 21:10 ENT: External ear(s): are unremarkable, Nose: is normal, Mouth: Lips: moist, Oral mucosa: pink and intact, moist, Posterior pharynx: is normal, airway is patent, no erythema, no exudate. 21:10 Chest/axilla: Inspection: normal. 21:10 Cardiovascular: Rate: normal, Rhythm: regular, Edema: is not appreciated, JVD: is not appreciated. 21:10 Respiratory: the patient does not display signs of respiratory distress, Respirations: normal, no use of accessory muscles, no retractions, labored breathing, is not present, Breath sounds: are clear throughout, no decreased breath sounds, no stridor, no wheezing. 21:10 Abdomen/GI: Inspection: obese Bowel sounds: active, all quadrants, Palpation: soft, in all quadrants, moderate abdominal tenderness, in the umbilical area, right lower quadrant and left lower quadrant, voluntary guarding, is elicited in the umbilical area, right lower quadrant and left lower quadrant. 21:10 Back: pain, is absent, ROM is normal. 21:10 Neuro: Orientation: to person, place \T\ time. Mentation: is normal, Motor: moves all fours, strength is normal, Sensation: is normal. Vital Signs: 19:40 BP 139 / 84; Pulse 73; Resp 18; Temp 97.3(TE); Pulse Ox 98% on R/A; Weight 132 kg; nj1 Height 5 ft. 7 in. ; Pain 4/10; 23:05 BP 132 / 74; Pulse 74; Resp 20; Pulse Ox 99% on R/A; mb9 19:40 Body Mass Index 45.58 (132.00 kg, 170.18 cm) [facility] 19:40 Pain Scale: Adult [facility] MDM: 20:30 Patient medically screened. cp 02/25 00:00 Differential diagnosis: appendicitis, cholecystitis, Cholelithiasis, diverticulitis, cp gastritis, non-specific abd pain, pancreatitis. 01:30 Management of patient was discussed with the following: Fiberglass Technician: DR Gama, cp general surgery, who will consult on patient after discussion of CT findings. 01:40 Data reviewed: vital signs, nurses notes, lab test result(s), radiologic studies, CT cp scan, and as a result, I will admit patient, PCP is DR Young, will admit and put orders into [facility]. 02/24 20:50 Order name: CBC with Diff; Complete Time: 23:23 02/24 23:23 Interpretation: Reviewed. 02/24 20:50 Order name: CMP; Complete Time: 23:23 02/24 23:23 Interpretation: Normal except: CL 113; GLUC 119; BUN 19; CRE 1.46; GFR 49; ALB 3.2; cp GLOB 4.1; A/G 0.8. 02/24 20:50 Order name: Lipase; Complete Time: 23:23 02/24 20:50 Order name: Urinalysis w/ reflexes cp 02/25 01:07 Order name: Lactate w/ 2H reflex if indic. cp 02/25 01:07 Order name: Blood Culture Adult (2) cp 02/25 02:29 Order name: Basic Metabolic Panel EDTN 02/25 02:29 Order name: Basic Metabolic Panel EDTN 02/25 02:29 Order name: Basic Metabolic Panel EDMS 02/25 02:29 Order name: CBC with Automated Diff EDMS 02/25 02:29 Order name: CBC with Automated Diff EDMS 02/25 02:29 Order name: CBC with Automated Diff EDMS 02/25 02:29 Order name: Lipase EDMS 02/25 02:29 Order name: Lipase EDMS 02/25 02:29 Order name: Lipase EDMS 02/25 02:29 Order name: Liver (Hepatic) Function EDMS 02/25 02:29 Order name: Liver (Hepatic) Function EDMS 02/25 02:29 Order name: Liver (Hepatic) Function EDMS 02/24 21:11 Order name: CT Abd/Pelvis - IV Contrast Only cp 02/25 01:07 Order name: US Abdomen Limited: gallbladder cp 02/25 02:29 Order name: NPO EDTN 02/24 20:50 Order name: IV Saline Lock; Complete Time: 21:58 cp 02/24 20:50 Order name: Labs collected and sent; Complete Time: 21:58 cp Administered Medications: 02/24 21:58 Not Given (Patient Refused): morphine IVP or IV 4 mg IVP once over 4 mins mb9 21:58 Not Given (Patient Refused): Ondansetron IVP 4 mg IVP once; over 2 minutes mb9 23:32 Drug: NS 0.9% IV 500 ml Route: IV; Rate: 125 ml/hr; Site: right antecubital; mb9 02/25 03:52 Drug: Piperacillin-Tazobactam IVPB 4.5 grams Route: IVPB; Infused Over: 60 mins; Site: aa9 right antecubital; Disposition: 03:18 Co-signature as Attending Physician, Spike Jacobs MD I agree with the assessment sp4 and plan of care. I reviewed the patient's care provided by Advanced Practice Provider \T\ agree w/ the diagnosis \T\ care plan. I personally saw the pt \T\ performed a substantive portion of the visit, incldng all aspects of the (History/Exam/Medical Decision Making). Disposition Summary: 02/25/23 01:35 Hospitalization Ordered Hospitalization Status: Inpatient Admission cp Provider: Sylvain Young cp Condition: Stable cp Problem: new cp Symptoms: have improved cp Bed/Room Type: Standard cp Location: Telemetry/MedSurg (Inpatient)(02/25/23 16:15) ja Room Assignment: 411(02/25/23 16:15) ja Diagnosis - Abdominal pain, unspecified cp Forms: - Medication Reconciliation Form cp - SBAR form cp Signatures: Dispatcher [employer] EDTN Ina Rapp RN RN mw Page, Corey, PA PA cp Christiano Pierce RN RN ja1 Desirae Lux RN RN aa9 Breneman, Mary Beth RN Spike Dooley MD MD sp4 Missy Crooks RN RN nj1 Corrections: (The following items were deleted from the chart) 01:42 01:35 Telemetry/MedSurg (Inpatient) cp 01:42 01:35 cp 16:15 01:42 [facility] ER HOLD mw ja1 16:15 01:42 ERHOLD- mw ja1
[2023-02-25] MEDS ORDERED: MORPHINE 4 MG/ML SYR IV PRN (02:20)
[2023-02-25] MEDS ORDERED: ONDANSETRON 4 MG/2 ML VIAL IV PRN (02:20)
[2023-02-25] MEDS ORDERED: NA CHLORIDE 0.9% 100 ML ONE ×3 (03:15→16:46)
[2023-02-25] MEDS ORDERED: PIPERACIL/TAZO 4.5 GM VIAL IV ONE ×3 (03:15→16:45)
[2023-02-25 04:28] VITALS: BMI 45.6
[2023-02-25] MEDS: LEVOTHYROXINE SOD 0.1 MG TAB PO SCH (06:30)
[2023-02-25] MEDS ORDERED: LEVOTHYROXINE SOD 0.1 MG TAB ONE (06:32)
[2023-02-25] MEDS: D5 0.9 NS 1,000 ML IV SCH ×2 (08:00→22:02)
[2023-02-25 08:47] LABS: Absolute Lymphocytes (CBC) 2.1 K/uL (0.7-4.9); Hematocrit 39.1 % (39.6-49.0); Lymphocytes % 28.4 % (15.3-44.8); RBC Red Blood Cell Count 4.39 M/uL (4.33-5.43)
[2023-02-25] MEDS: FINASTERIDE 5 MG TAB PO SCH (09:00)
[2023-02-25] MEDS: DOXAZOSIN 2 MG TAB PO SCH ×2 (09:00→21:52)
[2023-02-25] MEDS: ENOXAPARIN 40 MG/0.4 ML SQ SCH (09:00)
[2023-02-25] MEDS: METOPROLOL TAR 50 MG TAB PO SCH ×2 (09:00→21:00)
[2023-02-25] MEDS: LOSARTAN POTASSIUM 50 MG TABLET PO SCH (09:00)
[2023-02-25] MEDS: PIPER TAZO 4.5 GM in NA CHLORIDE 0.9% 100 ML IV SCH ×2 (09:00→16:41)
[2023-02-25 09:04] LABS: Albumin 3.1 g/dL (3.4-5.0); Bilirubin Direct 0.4 mg/dL (0-0.2); Bilirubin Indirect, Calculated 0.8 mg/dL (0.2-0.8); Bilirubin Total 1.2 mg/dL (0.2-1.0); Potassium 3.6 mEq/L (3.5-5.1); Protein, Total 6.9 g/dL (6.4-8.2)
[2023-02-25] MEDS ORDERED: D5 0.9 NS 1,000 ML IV ONE (09:07)
[2023-02-25] MEDS ORDERED: LOSARTAN POTASSIUM 50 MG TABLET ONE (09:07)
[2023-02-25] MEDS ORDERED: ENOXAPARIN 40 MG/0.4 ML SQ ONE (09:07)
[2023-02-25] MEDS ORDERED: METOPROLOL TAR 50 MG TAB ONE ×2 (09:07→09:22)
--- NOTE | 2023-02-25 10:26 | RAD REPORT ---
EXAM DESCRIPTION: CT scan of the abdomen and pelvis CLINICAL HISTORY: Abdominal pain. TECHNIQUE: CT scan of the abdomen and pelvis was performed with intravenous contrast. 5 mm axial raissa ges were obtained along with coronal and sagittal reformatted images. COMPARISON: None. DOSE OPTIMIZATION: This facility uses dose optimization techniques as appropriate to perform exams, i ncluding at least one of the following techniques: 1. Automated exposure control. 2. Adjustment of the mA and/or kV according to patient size (this includes techniques or standardized protocols for targeted exams where dose is matched to the indication/reason for exam, i.e. extremiti es or head). 3. Use of iterative reconstructive technique. FINDINGS: Lung Bases: There are no active infiltrates. There is evidence of coronary arterial disease. There is a small pericardial effusion. Liver: There is evidence of hepatic cirrhosis. There is no associated portal venous hypertension with recanalization of the umbilical vein demonstra cristian. Spleen: Normal. Pancreas: Normal. Gallbladder: Gallbladder is mildly distended. Adrenal Glands: There is a nodular fat-containing mass within the left adrenal gland measuring 1.2 cm . This likely represents a myelolipoma. No follow-up imaging required. Kidneys: Normal. Retroperitoneal Structures: There is mild atherosclerotic disease about the abdominal aorta and its b ranch vessels. Bowel Survey: The stomach is unremarkable. The small bowel is unremarkable. The appendix is unremarkable. The colon is nondistended. Prostate Gland: Normal size. Urinary Bladder: Normal. Peritoneal Cavity: Normal. Mesenteric Structures: Normal. Abdominal Wall: No hernia. Bony Structures: No suspicious lesions. There is severe diffuse spondylosis throughout the lower thor acic and lumbar spine. IMPRESSION: 1. Hepatic cirrhosis. 2. Mild gallbladder distention. Electronically signed by: Carlos Katz MD 02/24/2023 11:27 PM CDT Due to temporary technical issues with the PACS/Fluency reporting system, reports are being signed by the in house radiologist without review as a courtesy to ensure prompt reporting. The interpreting r adiologist is fully responsible for the content of the report.
--- NOTE | 2023-02-25 10:40 | RAD REPORT ---
EXAM DESCRIPTION: Abdomen Exam Limited CLINICAL HISTORY: ABD PAIN TECHNIQUE: Real-time and goldberg scale sonographic imaging of the right upper quadrant was performed. COMPARISON: Correlation is made with a prior CT of the abdomen and pelvis FINDINGS: Gallbladder: No gallstones are visualized. Evaluation difficult due to patient's body habi tus. No gallbladder wall thickening or pericholecystic fluid. Common bile duct: 3 mm in diameter. There is no intrahepatic biliary ductal dilatation. IMPRESSION: No evidence of cholelithiasis or signs of cholecystitis. Electronically signed by: Christiano Tom MD 02/25/2023 1:56 AM CDT Due to temporary technical issues with the PACS/Fluency reporting system, reports are being signed by the in house radiologist without review as a courtesy to ensure prompt reporting. The interpreting r adiologist is fully responsible for the content of the report.
--- NOTE | 2023-02-25 13:59 | CON ---
Date of Consultation: 02/25/2023 Diagnosis: Abdominal pain. History Of Present Illness: This is the case of a 77-year-old patient, who comes to us with abdomina l pain, sometimes periumbilical, sometimes in the epigastric area, sometimes in the right upper quadr ant. He was sent in by the primary doctor to the ER as a part of the diagnosis . He state s that it has been like that for a month, on and off, the other days he had pain and when he had diar zi, the pain went away. He has not been diagnosed with inflammatory bowel disease or Crohn disease or any family member, although he does not remember his last colonoscopy or who did it. He denies a ny dysuria, hematuria, hematochezia, melena. Denies any recent traveling out of the country. Denies any family member sick at home. Review of Systems: Ten points otherwise unremarkable. Allergies: NONE. Medications: He states a blood thinner, he does not remember the name. Past Medical History: Kidney stones, hypertension, benign prostatic hypertrophy. Past Surgical History: None. Once again, he does not remember his last colonoscopy. Physical Examination: General: The patient is awake, alert. HEENT: Pupils are equal and reactive. Anicteric. Neck: Supple. Chest: Clear. Heart: S1, S2. Abdomen: Mild epigastric, mild periumbilical tenderness. No guarding or rebound. No peritoneal sig ns. Rectal: Deferred. Extremities: Good capillary refill. Laboratory Data: Blood work shows WBC count of 7.0, hemoglobin of 13.2. Potassium 3.6, creatinine i s 1.41, total bilirubin of 1.2, lipase 17. CAT scan of the abdomen and pelvis interpreted by Dr. Boris barrera as hepatic cirrhosis, mild gallbladder distention. Ultrasound also interpreted by Dr. Laura as no e vidence of cholelithiasis or sign of cholecystitis. Assessment: This is a 77-year-old patient with generalized abdominal pain on and off, not related to specific diet. We recommend this patient to be evaluated by a automotive general manager to rule out inflam matory bowel disease or any other colitis or cause of colitis. Colonoscopy may be indicated too. Fr om the surgical standpoint, if he continues with symptoms and moved to the right upper quadrant and w e believe it could be gallbladder, then a HIDA scan could be done too. If not done during this admis hoda, electively may work too. I explained to the patient and the family tomorrow I will not be arou nd for the next few days, but Dr. Singh will be covering for me from the surgical standpoint if they have any questions from the surgical standpoint. KALLIE/GUICHO Voice ID: [id number] Report ID: [id number]
[2023-02-25] MEDS: ATORVASTATIN 20 MG TAB PO SCH (21:52)
[2023-02-26 01:26] LABS: Specific Gravity 1.026 (1.005-1.030); Urine Bacteria None Seen /HPF (<20); Urine Bilirubin NEGATIVE (Negative); Urine Blood Trace (Negative); Urine Clarity Clear (Clear); Urine Color Light-Yellow (Yellow); Urine Glucose NEGATIVE (Negative); Urine Mucus Slight /HPF (None Seen); Urine Protein TRACE (Negative); Urine RBC <5 /HPF (None Seen); Urine Urobilinogen Normal (Normal); Urine pH 5.5 (5.0-7.0)
[2023-02-26] MEDS: PIPER TAZO 4.5 GM in NA CHLORIDE 0.9% 100 ML IV SCH ×3 (01:45→16:35)
[2023-02-26] MEDS: LEVOTHYROXINE SOD 0.1 MG TAB PO SCH (06:10)
[2023-02-26 06:53] LABS: Absolute Lymphocytes (CBC) 1.6 K/uL (0.7-4.9); Hematocrit 36.9 % (39.6-49.0); MCV 88.4 fL (80-100); MPV 8.7 fL (7.6-11.3); RBC Red Blood Cell Count 4.18 M/uL (4.33-5.43)
--- NOTE | 2023-02-26 07:05 | HP ---
Date of Admission: 02/25/2023 Chief Complaint: Abdominal pain, diarrhea. History Of Present Illness: This is a 77-year-old very pleasant male patient, who says that after he ate something on Thursday, he started to have abdominal pain for last 2 days. Vomited once yesterday and has had several diarrhea stool yesterday. Denies any blood in stool. No urinary complaints. No hematemesis. No fever or chills. He came into office yesterday with these complaints and he was no cristian to have significant abdominal tenderness, diffusely scattered all over abdomen, and the patient w as advised to come to emergency room. Details were discussed with ER physician and after the patient was evaluated in the ER, he was admitted to the hospital and I saw him in the emergency room this mo rning. Allergies: NO KNOWN ALLERGIES. Medications: Eliquis 5 mg 2 times a day, Atorvastatin 20 mg daily at bedtime, doxazosin 2 mg 2 times a day, finasteride 5 mg daily, levothyroxine 200 mcg daily, losartan 100 mg daily, metoprolol tartra te 25 mg takes 2 tablets 2 times a day. Review of Systems: GI: As mentioned above. All other systems reviewed and negative. Past Medical History: Significant for hypertension, mixed hyperlipidemia, chronic atrial fibrillatio n, hypothyroidism, type 2 diabetes mellitus, chronic kidney disease, benign prostatic hypertrophy. Past Surgical History: Negative. Family History: Significant for father had coronary artery disease. Mother , details unknown. Brother and sister alive and doing well. Social History: Negative for smoking and alcohol use. Physical Examination: Vital Signs: This morning temperature 98.2, pulse 58, respiratory rate 17, blood pressure 166/82, ox ygen saturation 94% on room air. Height 5 feet 7 inches, weight 291 pounds. General: Awake, alert, oriented, not in distress. HEENT: Head atraumatic, normocephalic. Conjunctivae nonerythematous. Sclerae white. Mouth, no thr ush or edema noted. Ears/Nose, no mass, lesion, discharge noted. Neck: Supple. No JVD, lymph nodes, bruit, thyromegaly noted. Lungs: Bilateral good equal air entry. Clear to auscultation. No rhonchi. No rales. Heart: Normal heart sounds, no murmur or gallop. Abdomen: Soft, bowel sounds normal. No guarding, rigidity. No distention, but patient does have di ffuse tenderness all over abdomen, mostly in the center of the abdomen. No rebound tenderness. Extremities: No leg edema. No calf tenderness. Skin: No rash, ulcer, cellulitis. Lymphatics: No lymph node enlargement in neck, supraclavicular, infraclavicular region. Neuro: No focal neurological deficit. Chest: Unremarkable. External Genitalia: Deferred. Rectal: Deferred. Laboratory Data: Upon arrival to emergency room; white count 7.5, hemoglobin 13.7, platelets 167. S odium 145, potassium 3.6, chloride 113, bicarb 27, BUN 19, creatinine 1.46, estimated GFR 49, glucose 119. Lactic acid 1.3. Liver function tests unremarkable and lipase is normal at 15. CAT scan of t he abdomen does not show any acute intraabdominal changes. Mildly distended gallbladder noted and ab dominal ultrasound does not show any evidence of any gallstone or acute cholecystitis. Impression: 1.Acute gastroenteritis. 2.Chronic kidney disease, stage 3A. 3.Hypertension. 4.Mixed hyperlipidemia. 5.Chronic atrial fibrillation. 6.Chronic anticoagulation therapy. 7.Type 2 diabetes mellitus. 8.Hypothyroidism. Plan: We will go ahead and admit the patient to hospital for further evaluation and management of th is problem. The patient is appropriate for inpatient and is expected to spend 2 midn[facility] in [facility]. DVT prophylaxis will be given per order using Lovenox. We will go ahead and consult general surg marcie. Empiric antibiotics will be started. For hypertension, we will continue antihypertensive medic ation per order. Monitor blood pressure, make adjustment on blood pressure medication as it becomes necessary. For hyperlipidemia, we will continue his statin therapy. For hypothyroidism, he is on le vothyroxine 200 mcg daily, we will continue that. Details and plan of treatment discussed with the p gene. I will see him tomorrow for followup. The patient was started on Zosyn in the emergency becky m and we will continue that at this point. Details were discussed with Dr. Gama, general surgeon . At this point, we do not believe that the patient has any evidence of acute cholecystitis and does not need any gallbladder surgery, but close followup is necessary. FRANNY/MODL Voice ID: [id number]
[2023-02-26 07:15] LABS: Albumin 2.7 g/dL (3.4-5.0); Bilirubin Direct 0.2 mg/dL (0-0.2); Bilirubin Indirect, Calculated 0.6 mg/dL (0.2-0.8); Bilirubin Total 0.8 mg/dL (0.2-1.0); Potassium 3.9 mEq/L (3.5-5.1); Protein, Total 6.3 g/dL (6.4-8.2)
[2023-02-26] MEDS: FINASTERIDE 5 MG TAB PO SCH (09:53)
[2023-02-26] MEDS: ENOXAPARIN 40 MG/0.4 ML SQ SCH (09:53)
[2023-02-26] MEDS: LOSARTAN POTASSIUM 50 MG TABLET PO SCH (09:53)
[2023-02-26] MEDS: DOXAZOSIN 2 MG TAB PO SCH ×2 (09:53→21:41)
[2023-02-26] MEDS: METOPROLOL TAR 50 MG TAB PO SCH ×2 (09:53→21:41)
--- NOTE | 2023-02-26 20:47 | PN ---
Date of Progress Note: 02/26/2023 Subjective: Patient was seen this morning for followup. He is feeling much better this morning. De nies any abdominal pain, nausea, or vomiting. No chest pain, no shortness of breath. Objective: Vital Signs: Reviewed. HEENT: Unremarkable. Lungs: Clear to auscultation. Heart: Sounds normal. Abdomen: Soft, bowel sounds normal. No guarding, rigidity, tenderness, distention. Extremities: No leg edema. Laboratory Data: White count 5.9, hemoglobin 12.7, platelets 151. Sodium 145, potassium 3.9, chlori de 116, bicarb 28, BUN 11, creatinine 1.27, glucose 129. Liver function tests unremarkable. Lipase 17. Impression: 1.Acute gastroenteritis. 2.Thrombocytopenia. 3.Anemia, unspecified. 4.Hypertension. Plan: We will go ahead and continue current medication. We will advance diet today. The patient to ambulate as tolerated. Continue current antibiotics IV and I will see him tomorrow for followup, po ssible discharge to go home tomorrow. Details were discussed with the patient. FRANNY/MODL Voice ID: [id number] Report ID: [id number]
[2023-02-26] MEDS: ATORVASTATIN 20 MG TAB PO SCH (21:41)
[2023-02-26 23:22] VITALS: O2SAT 96
[2023-02-27] MEDS: PIPER TAZO 4.5 GM in NA CHLORIDE 0.9% 100 ML IV SCH (00:18)
[2023-02-27 05:37] VITALS: BP 138/78; TEMP 98.6
[2023-02-27] MEDS: LEVOTHYROXINE SOD 0.1 MG TAB PO SCH (06:03)
--- NOTE | 2023-02-27 14:50 | EKG ---
Test Date: 2023-02-25 Test Time: 23:47:41 Manager Program: MARYA MEASUREMENT RESULTS: Intervals: Rate: 139 [place]: 208 QRSD: 78 QT: 318 QTc: 483 [place]: P: 53 [place]: 208 QRS: 38 T: 8 INTERPRETIVE STATEMENTS: Sinus tachycardia with fusion complexes Nonspecific ST and T wave abnormality Abnormal ECG Compared to ECG 02/25/2023 23:46:06 Fusion complex(es) now present ST (T wave) deviation now present Sinus rhythm no longer present Sinus arrhythmia no longer present Ventricular premature complex(es) no longer present Electronically Signed On 02-27-23 14:44:56 CDT by Rafael Oswald
--- NOTE | 2023-02-27 14:51 | EKG ---
Test Date: 2023-02-25 Test Time: 23:46:06 C D Stripper: MARYA MEASUREMENT RESULTS: Intervals: Rate: 84 [place]: 138 QRSD: 78 QT: 368 QTc: 434 [place]: P: 60 [place]: 138 QRS: 45 T: 52 INTERPRETIVE STATEMENTS: Sinus rhythm with marked sinus arrhythmia with occasional premature ventricular complexes Low voltage QRS Borderline ECG Compared to ECG 05/31/2022 14:16:59 Low QRS voltage now present Atrial fibrillation no longer present Electronically Signed On 02-27-23 14:44:57 CDT by Rafael Oswald
--- NOTE | 2023-02-27 19:35 | DS ---
Date of Discharge: 02/27/2023 Disposition: Discharged to go home. Physical Examination: HEENT: Unremarkable. Lungs: Clear to auscultation. Heart: Sounds normal. Abdomen: Soft. Bowel sounds normal. No guarding, rigidity, tenderness, or distention. Extremities: No leg edema. Laboratory Data: Upon admission white count was 7.5, hemoglobin 13.7, and platelets 167. Yesterday white count was 5.9, hemoglobin 12.7, and platelets 151. On February 25 platelet count was 149 and hemo globin was 13.2. Upon admission chemistry shows sodium of 145, potassium 3.6, chloride 113, bicarb 2 7, BUN 19, creatinine 1.46, and glucose 119. Liver function tests unremarkable. Yesterday sodium wa s 145, potassium 3.9, chloride 116, bicarb 28, BUN 11, creatinine 1.27, and glucose 129. Liver funct ion tests unremarkable. Lipase 17. Hospital Course: This is a 77-year-old pleasant male patient admitted to the hospital after he came in with complaints of abdominal pain and diarrhea. Please see dictated H and P for more information. The patient was evaluated in the emergency room and was admitted to the hospital. His CAT scan of the abdomen had shown mildly distended gallbladder and abdominal ultrasound did not show any evidence of cholecystitis or any fluid around the gallbladder and no evidence of gallstones. Initially the p atient was kept n.p.o. and subsequently he was started on diet. General Surgery consultation from Dr Gamaliel Gama was obtained and he did not have any other recommendation for any surgical intervention. The patient was started on IV antibiotic, which was Zosyn and subsequently we started him on diet, wh ich he has tolerated very well and we advanced his diet as he tolerated. Yesterday he ambulated very well without any problem. His abdominal pain has completely resolved now and has not had any pain i n over 24 hours. No more diarrhea either. He denies any nausea or vomiting. Today he was discharge d to go home in stable condition and I will see him next week for followup. Final Diagnoses: 1.Acute gastroenteritis. 2.Chronic kidney disease stage 3a. 3.Hypertension. 4.Mixed hyperlipidemia. 5.Chronic atrial fibrillation on chronic anticoagulation therapy. 6.Type 2 diabetes mellitus. 7.Hypothyroidism. Discharge Medications And Instructions: 1.Continue all prior home medications. 2.Take Augmentin 875 mg 2 times a day with food for 5 days. 3.Follow up at my office next week. FRANNY/MODL Voice ID: [id number] Report ID: [id number]
== END 2023-02-27 08:02 | disposition home or self-care (01) | DRG 392 ==
LOC: ER 19:31 → ERHOLD 02-25 02:18 → 4TH 02-25 16:41
PROVIDERS: ADMIT Internal Medicine; ATTEND Internal Medicine
DX: K52.9 Noninfective gastroenteritis and colitis, unspecified (principal); I48.19 Other persistent atrial fibrillation; I12.9 Hypertensive chronic kidney disease with stage 1 through stage 4 chronic kidney disease, or unspecified chronic kidney disease; E11.22 Type 2 diabetes mellitus with diabetic chronic kidney disease; N18.31 Chronic kidney disease, stage 3a; E78.2 Mixed hyperlipidemia; E03.9 Hypothyroidism, unspecified; D69.6 Thrombocytopenia, unspecified; N40.0 Benign prostatic hyperplasia without lower urinary tract symptoms; D64.9 Anemia, unspecified; Z79.01 Long term (current) use of anticoagulants; Z79.899 Other long term (current) drug therapy; Z82.49 Family history of ischemic heart disease and other diseases of the circulatory system
CPT/HCPCS: 36415; 74177; 76705; 80048; 80053; 80076; 81001; 83605; 83690; 85025; 87040; 93005; 96374; 99285; J1650; J2405; J7040; J7042; Q9967

== ENCOUNTER 2023-07-12 15:45 | Emergency (ER) | payer OTHER ==
--- NOTE | 2023-07-12 17:02 | RAD REPORT ---
EXAM DESCRIPTION: CT - [id number] - 07/12/2023 4:50 pm CLINICAL HISTORY: Trauma, head and neck injury. head injury COMPARISON: No comparisons TECHNIQUE: Axial 5 mm thick images of the head were obtained. Axial 2 mm thick images of the cervical spine were obtained with sagittal and coronal reconstruction images generated and reviewed. All CT scans are performed using dose optimization technique as appropriate and may include automated exposure control or mA/KV adjustment according to patient size. FINDINGS: CT HEAD WITHOUT CONTRAST: No acute hemorrhage, hydrocephalus or extra-axial collection is identified.No areas of brain edema or midline shift. Mild chronic small vessel ischemic changes. The paranasal sinuses and mastoids are clear.The calvarium is intact. CT CERVICAL SPINE WITHOUT CONTRAST: No fracture or subluxation.No prevertebral soft tissues swelling is identified. Multilevel degenerati ve changes are present in the spine. Varying degrees of neural foraminal narrowing noted bilaterally. IMPRESSION: No acute intracranial or cervical spine findings.
[2023-07-12] MEDS ORDERED: LIDOCAINE 1% MPF 5 ML VIAL ONE (17:50)
--- NOTE | 2023-07-12 18:24 | EDPHYS ---
Physician Documentation [facility] Name: Tramaine Garrido Age: 78 yrs Sex: Male : 1945 Arrival Date: 07/12/2023 Time: 15:45 Bed 7 Private MD: ED Physician Faustino Mcintyre HPI: 07/12 18:24 This 78 yrs old Male presents to ER via EMS with complaints of Head Injury kb Without LOC-Adult. 17:16 Patient reports he was at work when the chair rolled out from under him and caused him kb to fall. Patient hit head on the table causing laceration. Denies LOC. Reports he hit his calf as well but that is feeling better. Reports he was ambulatory after fall.. Historical: - Allergies: 15:51 No Known Allergies; hb - PMHx: 15:51 BPH; Hypertensive disorder; Kidney stone; hb - Immunization history:: Adult Immunizations up to date. - Social history:: Smoking status: Patient reports the use of cigarette tobacco products. ROS: 17:16 Constitutional: Negative for fever, chills, and weight loss, kb 17:16 Skin: Positive for laceration(s), of the left side of the back of head, 17:16 All other systems are negative, Exam: 17:16 Constitutional: This is a well developed, well nourished patient who is awake, alert, kb and in no acute distress. Head/Face: Normocephalic, atraumatic. Eyes: Pupils equal round and reactive to light, extra-ocular motions intact. Lids and lashes normal. Conjunctiva and sclera are non-icteric and not injected. Cornea within normal limits. Periorbital areas with no swelling, redness, or edema. ENT: Moist Mucous membranes Cardiovascular: Regular rate Respiratory: Respirations even and unlabored. No increased work of breathing. Talking in full sentences MS/ Extremity: Pulses equal, no cyanosis. Neurovascular intact. Full, normal range of motion. Neuro: Awake and alert, GCS 15, oriented to person, place, time, and situation. Moves all extremities. Normal gait. 17:16 Skin: injury, laceration(s), the wound is approximately 2 cm(s), of the left side of the back of head, that can be described as clean, no foreign body, linear, without bleeding, Vital Signs: 15:49 BP 144 / 67; Pulse 63; Resp 18; Temp 98.3; Pulse Ox 97% on R/A; Weight 145.15 kg; hb Height 5 ft. 7 in. ; Pain 7/10; 15:49 Body Mass Index 50.12 (145.15 kg, 170.18 cm) hb 15:49 Pain Scale: Adult hb Christie Coma Score: 17:16 Eye Response: spontaneous(4). Motor Response: obeys commands(6). Verbal Response: kb oriented(5). Total: 15. 17:16 Eye Response: spontaneous(4). Motor Response: obeys commands(6). Verbal Response: kb oriented(5). Total: 15. MDM: 15:49 Patient medically screened. rn 17:16 Differential diagnosis: Contusion of Hematoma on Laceration of Intracranial bleed-. kb Data reviewed: vital signs, nurses notes. Historians other than the Patient: EMS: [employer]. Counseling: I had a detailed discussion with the patient and/or guardian regarding the historical points, exam findings, and any diagnostic results supporting the discharge/admit diagnosis, radiology results, the need for outpatient follow up, a family practitioner, to return to the emergency department if symptoms worsen or persist or if there are any questions or concerns that arise at home. 18:22 ED course: Patient prefers not to have néstor unless absolutely necessary. Laceration kb is well approximated, néstor may not pull skin together and more than it already is. Patient educated on being careful with laceration during healing process. Verbal understanding received.. 07/12 15:50 Order name: CT Head C Spine; Complete Time: 17:04 rn 07/12 17:19 Order name: Dressing - Wound; Complete Time: 18:35 kb 07/12 17:19 Order name: Gloves, Sterile; Complete Time: 18:35 kb 07/12 17:19 Order name: Setup Suture Tray; Complete Time: 18:35 kb 07/12 17:19 Order name: Wound Care: clean wound please; Complete Time: 17:54 kb Administered Medications: No medications were administered Disposition: 07/13 10:03 Co-signature as Attending Physician, Faustino Mcintyre MD I reviewed the patient's care rn provided by the Advanced Practice Provider and agree with the diagnosis and treatment plan. Disposition Summary: 07/12/23 18:24 Discharge Ordered Notes: Location: Home kb Condition: Stable kb Diagnosis - Fall on same level from slipping, tripping and stumbling without subsequent kb striking against object - Unspecified injury of head, initial encounter kb - Laceration without foreign body of scalp kb Followup: kb - With: Emergency Department - When: As needed - Reason: Worsening of condition Followup: kb - With: Private Physician - When: 2 - 3 days - Reason: Recheck today's complaints, Continuance of care, Re-evaluation by your physician Discharge Instructions: - Discharge Summary Sheet kb - Laceration Care, Adult, [id number] kb - Head Injury, Adult, [id number] kb Forms: - Medication Reconciliation Form kb - Thank You Letter kb - Antibiotic Education kb - Prescription Opioid Use kb - Patient Portal Instructions kb - Leadership Thank You Letter kb Signatures: Dispatcher [employer] Katelyn Ott, YULI-C FREIGHT WEIGHER-Afia Villela RN RN iw Nieto, Roman, MD MD rn Baxter, Heather, RN RN
--- NOTE | 2023-07-12 18:24 | ER ---
Nurse's Notes [facility] Name: Tramaine Garrido Age: 78 yrs Sex: Male : 1945 Arrival Date: 07/12/2023 Time: 15:45 Bed 7 Private MD: Diagnosis: Fall on same level from slipping, tripping and stumbling without subsequent striking against object;Unspecified injury of head, initial encounter;Laceration without foreign body of scalp Presentation: 07/12 15:49 Chief complaint: EMS states: Rolling chair slipped out from under him and he fell onto hb the right side, hit head on wall. Negative LOC. Small laceration noted to left head, bleeding controlled. Coronavirus screen: At this time, the client does not indicate any symptoms associated with coronavirus-19. Ebola Screen: No symptoms or risks identified at this time. Initial Sepsis Screen: Does the patient meet any 2 criteria? No. Patient's initial sepsis screen is negative. Does the patient have a suspected source of infection? No. Patient's initial sepsis screen is negative. Risk Assessment: Do you want to hurt yourself or someone else? Patient reports no desire to harm self or others. Onset of symptoms was July 12, 2023. 15:49 Method Of Arrival: EMS: [facility] 15:49 Acuity: MARKEL 4 hb Triage Assessment: 18:35 General: Appears in no apparent distress. Behavior is calm, cooperative. iw Historical: - Allergies: 15:51 No Known Allergies; hb - PMHx: 15:51 BPH; Hypertensive disorder; Kidney stone; hb - Immunization history:: Adult Immunizations up to date. - Social history:: Smoking status: Patient reports the use of cigarette tobacco products. Screenin:32 [facility] ED Fall Risk Assessment (Adult) History of falling in the last 3 months, iw including since admission Yes- single mechanical fall (1 pt) Score/Fall Risk Level. Abuse screen: Denies threats or abuse. Denies injuries from another. Nutritional screening: No deficits noted. Tuberculosis screening: No symptoms or risk factors identified. Assessment: 18:32 Reassessment: Patient appears in no apparent distress at this time. Patient and/or iw family updated on plan of care and expected duration. Pain level reassessed. Patient is alert, oriented x 3, equal unlabored respirations, skin warm/dry/pink. 18:33 Pain: Complains of pain in left side of the back of head and scalp and left frontal iw area. Vital Signs: 15:49 BP 144 / 67; Pulse 63; Resp 18; Temp 98.3; Pulse Ox 97% on R/A; Weight 145.15 kg; hb Height 5 ft. 7 in. ; Pain 7/10; 15:49 Body Mass Index 50.12 (145.15 kg, 170.18 cm) hb 15:49 Pain Scale: Adult hb Christie Coma Score: 17:16 Eye Response: spontaneous(4). Motor Response: obeys commands(6). Verbal Response: kb oriented(5). Total: 15. 17:16 Eye Response: spontaneous(4). Motor Response: obeys commands(6). Verbal Response: kb oriented(5). Total: 15. ED Course: 15:48 Patient arrived in ED. iw 15:49 Faustino Mcintyre MD is Attending Physician. rn 15:50 Faustino Mcintyre MD is Attending Physician. rn 15:51 Triage completed. hb 15:52 Katelyn Mata FNP-C is [facility]. kb 16:52 CT Head C Spine In Process Unspecified. EDMS 17:29 Arm band placed on. iw 17:35 Afia Terry, ROMAIN is Primary Nurse. iw 18:32 No provider procedures requiring assistance completed. Patient did not have IV access iw during this emergency room visit. Administered Medications: No medications were administered Medication: 18:33 VIS not applicable for this client. iw Outcome: 18:24 Discharge ordered by . kb 18:35 Discharged to home via wheelchair, with family, iw 18:35 Condition: good 18:35 Discharge instructions given to patient, Instructed on discharge instructions, follow up and referral plans. Demonstrated understanding of instructions, follow-up care, 18:35 Patient left the ED. iw Signatures: Dispatcher [employer] EDMS Katelyn Mata FNP-C LEAD ELECTRICIAN-CkAfia Cooley, RN ROMAIN iw Faustino Mcintyre MD MD rn Baxter, Heather, RN RN
== END 2023-07-12 18:35 | disposition home or self-care (01) ==
LOC: ER 15:45
DX: S01.01XA Laceration without foreign body of scalp, initial encounter (principal); W01.0XXA Fall on same level from slipping, tripping and stumbling without subsequent striking against object, initial encounter; Z72.0 Tobacco use
CPT/HCPCS: 70450; 72125; 99283; J2001